=== PATIENT | female | born 2000 | race Caucasian/White ===

== ENCOUNTER 2021-11-13 20:54 | Outpatient (CLI) | payer OTHER ==
[~2021-11-13 20:54] MED LIST: BETADINE OINT 101 GM EXT; IBUPROFEN400 MG PO; KEFLEX250 MG PO; NORCO 5-325 TA1 EACH PO; VITAMIN C 250250 MG PO
== END 2021-11-14 00:18 | disposition home or self-care (01) ==
LOC: GENOP 20:54
DX: O99.891 Other specified diseases and conditions complicating pregnancy (principal); R10.2 Pelvic and perineal pain; M54.9 Dorsalgia, unspecified; R42 Dizziness and giddiness; Z3A.28 28 weeks gestation of pregnancy
CPT/HCPCS: 81001; 96360; 96361; 96365; J0696

== ENCOUNTER 2021-11-23 23:11 | Outpatient (CLI) | payer OTHER | END 2021-11-24 01:34 | disposition home or self-care (01) | LOC: GENOP 23:11 | DX: O23.13 Infections of bladder in pregnancy, third trimester (principal); N30.90 Cystitis, unspecified without hematuria; O99.891 Other specified diseases and conditions complicating pregnancy; R10.2 Pelvic and perineal pain; M54.9 Dorsalgia, unspecified; R07.9 Chest pain, unspecified; Z3A.30 30 weeks gestation of pregnancy | CPT/HCPCS: 59025; 81001; 93005; 96372; J0696 ==

== ENCOUNTER 2021-12-14 02:25 | Outpatient (CLI) | payer OTHER | END 2021-12-14 03:23 | disposition home or self-care (01) | LOC: GENOP 02:25 | DX: O99.891 Other specified diseases and conditions complicating pregnancy (principal); R09.1 Pleurisy; R79.0 Abnormal level of blood mineral; Z3A.32 32 weeks gestation of pregnancy | CPT/HCPCS: G0463 ==